=== PATIENT | female | born 1940 | race Caucasian/White ===

== ENCOUNTER 2019-03-25 14:39 | Inpatient (IN) ==
[2019-03-25] MEDS ORDERED: Furosemide 40 MG/4 ML VIAL IVP ONE (15:03)
[2019-03-25] MEDS ORDERED: Ipratropium/Albuterol Neb 3 ML IH ONE (15:03)
[2019-03-25] MEDS ORDERED: *HR* Labetalol 20 MG/4 ML SYRINGE IVP ONE (15:18)
[2019-03-25 15:50] LABS: Basophils % 0.1 %; Eosinophils # 0.3 K/mcL (0.0-0.6); Eosinophils % 4.6 %; Hematocrit 39.2 % (35.3-44.9); Immature Granulocytes % 0.1 % (0-4); Lymphocytes # 1.5 K/mcL (0.6-4.6); Lymphocytes % 21.1 %; Mean Corpuscular HGB Conc 33.2 g/dL (31.6-35.5); Mean Corpuscular Hemoglobin 30.4 pg (28.0-33.3); Mean Corpuscular Volume 91.6 fL (83.0-100.0); Mean Platelet Volume 11.4 fL (9.4-12.4); Monocytes # 0.8 K/mcL (0.0-1.3); Monocytes % 10.7 %; Neutrophils # 4.4 K/mcL (1.6-8.9); Platelet Count 231 K/mcL (140-400); Red Blood Count 4.28 M/mcL (3.82-4.97); Segmented Neutrophils % 63.4 %
[2019-03-25 16:12] LABS: Calcium 10.4 mg/dL (8.6-10.3); Potassium 4.4 mEq/L (3.5-5.1)
[2019-03-25 16:18] LABS: Troponin I 0.05 ng/mL (< 0.04)
[2019-03-25] MEDS ORDERED: methylPREDNISolone 125 MG/2 ML VIAL IVP ONE (17:32)
[2019-03-25] MEDS ORDERED: Aspirin 325 MG TABLET PO ONE (17:34)
[2019-03-25] MEDS ORDERED: Ondansetron 4 MG/2 ML VIAL IVP PRN (17:58)
[2019-03-25] MEDS ORDERED: Naloxone 0.4 MG/ML INJ IVP PRN (17:58)
[2019-03-25] MEDS ORDERED: MethylPREDNISolone 40 MG/ML VIAL IVP SCH (18:00)
[2019-03-25] MEDS ORDERED: *HR* Labetalol 20 MG/4 ML SYRINGE IVP PRN (18:00)
[2019-03-25] MEDS ORDERED: Dextrose Gel 15 GM/37.5 ML TUBE PO PRN ×2 (18:24)
[2019-03-25] MEDS ORDERED: D5% in Water 1,000 ML IVC PRN (18:24)
[2019-03-25] MEDS ORDERED: *HR* Dextrose 50 % in Water (Syg) 50 ML SYRINGE IVP PRN (18:24)
[2019-03-25] MEDS: Ipratropium/Albuterol Neb 3 ML IH SCH ×2 (20:05→22:56)
[2019-03-25] MEDS: Insulin LISPRO 300 UNITS/3 ML VIAL SQ SCH (20:28)
[2019-03-25] MEDS: Furosemide 40 MG/4 ML VIAL IVP SCH (20:52)
[2019-03-25] MEDS: *HR* Heparin 5,000 UNIT/ML VIAL SQ SCH (20:54)
[2019-03-26 01:02] LABS: Bilirubin,Urine Negative (Negative); Blood,Urine Large (Negative); Clarity,Urine Cloudy (Clear); Color,Urine Yellow (Yellow); Glucose,Urine (UA) 500 mg/dL (Normal); Ketones,Urine Negative (Negative); Leukocyte Esterase,Urine Small (Negative); Nitrite,Urine Negative (Negative); Protein,Urine 100 mg/dL (Neg-Trace); Specific Gravity,Urine 1.014 (1.010-1.025); Urobilinogen,Urine Normal (Normal)
[2019-03-26 01:04] LABS: Bacteria,Urine None Seen per hpf (None-Few); Hyaline Casts,Urine None Seen per lpf (None-Few); RBC,Urine 50-100 per hpf (0-3); Squamous Epithelial Cell,Urine Many per lpf (None-Few); WBC,Urine 30-50 per hpf (0-3)
[2019-03-26] MEDS: Ipratropium/Albuterol Neb 3 ML IH SCH ×6 (04:15→23:11)
[2019-03-26] MEDS ORDERED: Chloraseptic Spray 177 ML BOTTLE MM PRN (04:28)
[2019-03-26 04:46] LABS: Basophils % 0.1 %; Hematocrit 42.9 % (35.3-44.9); Hemoglobin 13.6 g/dL (11.5-15.4); Immature Granulocytes % 0.1 % (0-4); Lymphocytes # 0.5 K/mcL (0.6-4.6); Lymphocytes % 6.3 %; Mean Corpuscular HGB Conc 31.7 g/dL (31.6-35.5); Mean Corpuscular Hemoglobin 29.9 pg (28.0-33.3); Mean Corpuscular Volume 94.3 fL (83.0-100.0); Mean Platelet Volume 12.6 fL (9.4-12.4); Monocytes # 0.1 K/mcL (0.0-1.3); Monocytes % 0.7 %; Neutrophils # 7.9 K/mcL (1.6-8.9); Platelet Count 238 K/mcL (140-400); Red Blood Count 4.55 M/mcL (3.82-4.97); Segmented Neutrophils % 92.8 %; White Blood Count 8.5 K/mcL (4.3-11.1)
[2019-03-26 05:08] LABS: Calcium 10.3 mg/dL (8.6-10.3); Magnesium 1.8 mg/dL (1.6-2.6); Potassium 4.1 mEq/L (3.5-5.1)
[2019-03-26] MEDS: *HR* Heparin 5,000 UNIT/ML VIAL SQ SCH ×3 (05:16→21:24)
[2019-03-26] MEDS: Insulin LISPRO 300 UNITS/3 ML VIAL SQ SCH ×4 (08:01→21:24)
[2019-03-26] MEDS: Furosemide 40 MG/4 ML VIAL IVP SCH (08:01)
[2019-03-26] MEDS ORDERED: *HR* LORazepam 0.5 MG TABLET PO PRN (12:59)
[2019-03-26] MEDS ORDERED: Insulin NPH/REG 70/30 100 UNIT/ML (x5UNIT) SQ SCH (15:00)
[2019-03-26] MEDS: Insulin NPH/REG 70/30 100 UNIT/ML (x5UNIT) SQ SCH (16:54)
[2019-03-26] MEDS: Metoprolol 100 MG TABLET PO SCH ×2 (16:55→21:24)
[2019-03-26] MEDS ORDERED: Perflutren Lipid Microsphere 1.3 ML in 0.9 % Sodium Chloride 8.7 ML IVP ONE (20:22)
[2019-03-26] MEDS ORDERED: Perflutren Lipid Microsphere 2 ML VIAL ONE (20:24)
[2019-03-26] MEDS ORDERED: Metoprolol 100 MG TABLET PO SCH (21:00)
[2019-03-27] MEDS: Furosemide 40 MG TABLET PO SCH ×2 (00:04→08:23)
[2019-03-27] MEDS: Ipratropium/Albuterol Neb 3 ML IH SCH ×6 (04:07→23:51)
[2019-03-27] MEDS: *HR* Heparin 5,000 UNIT/ML VIAL SQ SCH (05:37)
[2019-03-27 06:32] LABS: Calcium 10.4 mg/dL (8.6-10.3); Chol/HDL Ratio 2.9 (0-4.9); Potassium 4.1 mEq/L (3.5-5.1)
[2019-03-27] MEDS: Insulin LISPRO 300 UNITS/3 ML VIAL SQ SCH ×4 (08:10→21:16)
[2019-03-27] MEDS: Metoprolol 100 MG TABLET PO SCH ×2 (08:23→21:16)
[2019-03-27] MEDS: Cholecalciferol (D-3) 1,000 UNIT (25MCG) TABLET PO SCH (08:23)
[2019-03-27] MEDS: Insulin NPH/REG 70/30 100 UNIT/ML (x5UNIT) SQ SCH ×4 (08:24→17:44)
[2019-03-27] MEDS ORDERED: Furosemide 40 MG/4 ML VIAL IVP SCH (09:00)
[2019-03-27] MEDS ORDERED: 0.9 % Sodium Chloride 500 ML IVC SCH (12:45)
[2019-03-27] MEDS ORDERED: E-Z-PAQUE (BARIUM SULF) SUSP 1 BOTTLE PO ONE (12:51)
[2019-03-27] MEDS: amLODIPine 5 MG TABLET PO SCH (14:33)
[2019-03-28] MEDS: Ipratropium/Albuterol Neb 3 ML IH SCH ×6 (03:31→23:13)
[2019-03-28 04:05] LABS: Bilirubin,Urine Negative (Negative); Blood,Urine Large (Negative); Clarity,Urine Cloudy (Clear); Color,Urine Yellow (Yellow); Glucose,Urine (UA) Normal (Normal); Ketones,Urine Negative (Negative); Leukocyte Esterase,Urine Large (Negative); Nitrite,Urine Negative (Negative); Protein,Urine 100 mg/dL (Neg-Trace); Specific Gravity,Urine 1.017 (1.010-1.025); Urobilinogen,Urine Normal (Normal)
[2019-03-28 04:07] LABS: Bacteria,Urine None Seen per hpf (None-Few); Hyaline Casts,Urine None Seen per lpf (None-Few); RBC,Urine TNTC per hpf (0-3); Squamous Epithelial Cell,Urine Many per lpf (None-Few); WBC,Urine TNTC per hpf (0-3)
[2019-03-28 04:15] LABS: Sodium, Urine 54.8 mEq/L
[2019-03-28 05:22] LABS: Basophils % 0.3 %; Eosinophils # 0.1 K/mcL (0.0-0.6); Eosinophils % 1.3 %; Hematocrit 39.4 % (35.3-44.9); Hemoglobin 12.3 g/dL (11.5-15.4); Immature Granulocytes % 0.4 % (0-4); Lymphocytes # 2.2 K/mcL (0.6-4.6); Lymphocytes % 19.5 %; Mean Corpuscular HGB Conc 31.2 g/dL (31.6-35.5); Mean Corpuscular Hemoglobin 29.6 pg (28.0-33.3); Mean Corpuscular Volume 94.7 fL (83.0-100.0); Mean Platelet Volume 11.8 fL (9.4-12.4); Monocytes # 1.1 K/mcL (0.0-1.3); Monocytes % 10.1 %; Neutrophils # 7.6 K/mcL (1.6-8.9); Platelet Count 227 K/mcL (140-400); Red Blood Count 4.16 M/mcL (3.82-4.97); Red Cell Distribution Width 14.5 % (11.5-14.5); Segmented Neutrophils % 68.4 %
[2019-03-28 06:12] LABS: Calcium 9.9 mg/dL (8.6-10.3); Potassium 3.9 mEq/L (3.5-5.1)
[2019-03-28] MEDS: Insulin LISPRO 300 UNITS/3 ML VIAL SQ SCH ×4 (07:47→20:19)
[2019-03-28] MEDS: Insulin NPH/REG 70/30 100 UNIT/ML (x5UNIT) SQ SCH ×3 (07:49→18:22)
[2019-03-28] MEDS: amLODIPine 5 MG TABLET PO SCH (07:54)
[2019-03-28] MEDS: Cholecalciferol (D-3) 1,000 UNIT (25MCG) TABLET PO SCH (07:54)
[2019-03-28] MEDS: Metoprolol 100 MG TABLET PO SCH ×2 (07:56→20:19)
[2019-03-28] MEDS: Nystatin POWDER 30 GM BOTTLE TP SCH ×2 (07:57→20:20)
[2019-03-28] MEDS ORDERED: Ergocalciferol (VIT D2) 50,000 UNIT (1.25MG) CAP PO SCH (10:45)
[2019-03-28] MEDS: Furosemide 40 MG TABLET PO SCH (11:35)
[2019-03-29] MEDS ORDERED: Acetaminophen 325 MG TABLET PO PRN (00:28)
[2019-03-29] MEDS: Ipratropium/Albuterol Neb 3 ML IH SCH ×5 (03:59→19:50)
[2019-03-29 05:26] LABS: Calcium 10.1 mg/dL (8.6-10.3)
[2019-03-29] MEDS: Insulin LISPRO 300 UNITS/3 ML VIAL SQ SCH ×3 (08:06→16:59)
[2019-03-29] MEDS: Insulin NPH/REG 70/30 100 UNIT/ML (x5UNIT) SQ SCH ×3 (08:06→16:59)
[2019-03-29] MEDS: Nystatin POWDER 30 GM BOTTLE TP SCH (10:18)
[2019-03-29] MEDS: Metoprolol 100 MG TABLET PO SCH (10:24)
[2019-03-29] MEDS: amLODIPine 5 MG TABLET PO SCH (10:24)
[2019-03-29] MEDS: Furosemide 40 MG TABLET PO SCH (11:47)
[2019-03-29] MEDS ORDERED: 0.9 % Sodium Chloride 500 ML IVC SCH (13:30)
[2019-03-29] MEDS ORDERED: *HR* Propofol 200 MG/20 ML VIAL IVP ONE (13:49)
[2019-03-29 18:55] VITALS: BP 141/69
== END 2019-03-29 20:28 | DRG 291 ==
LOC: 3BNU 14:39 → EMEROOARM 14:39 → 3BNU 19:43
PROVIDERS: ADMIT Student in an Organized Health Care Education/Training Program; ATTEND Student in an Organized Health Care Education/Training Program
PROC: ENDOEDS (2019-03-29 14:25)

== ENCOUNTER 2019-06-16 18:49 | Inpatient (IN) ==
[2019-06-16] MEDS ORDERED: Ondansetron ODT 4 MG TAB.RAPDIS SL PRN (22:13)
[2019-06-16] MEDS ORDERED: Acetaminophen 325 MG TABLET PO PRN (22:13)
[2019-06-16] MEDS ORDERED: Naloxone 0.4 MG/ML INJ IVP PRN ×2 (22:13→22:37)
[2019-06-16] MEDS ORDERED: Ipratropium/Albuterol Neb 3 ML IH PRN (22:21)
[2019-06-16] MEDS ORDERED: Dextrose Gel 15 GM/37.5 ML TUBE PO PRN ×2 (22:23)
[2019-06-16] MEDS ORDERED: *HR* Dextrose 50 % in Water (Syg) 50 ML SYRINGE IVP PRN (22:23)
[2019-06-16] MEDS ORDERED: D5% in Water 1,000 ML IVC PRN (22:23)
[2019-06-16] MEDS: Furosemide 40 MG/4 ML VIAL IVP SCH (22:56)
[2019-06-16] MEDS: cefTRIAXone 2,000 MG in Water for inj. (sterile) 20 ML IVP SCH (22:56)
[2019-06-17 02:08] LABS: Basophils % 0.3 %; Eosinophils # 0.2 K/mcL (0.0-0.6); Eosinophils % 1.7 %; Hematocrit 42.3 % (35.3-44.9); Hemoglobin 13.5 g/dL (11.5-15.4); Immature Granulocytes % 0.2 % (0-4); Lymphocytes # 1.8 K/mcL (0.6-4.6); Lymphocytes % 18.5 %; Mean Corpuscular HGB Conc 31.9 g/dL (31.6-35.5); Mean Corpuscular Hemoglobin 29.7 pg (28.0-33.3); Mean Corpuscular Volume 93.2 fL (83.0-100.0); Mean Platelet Volume 12.1 fL (9.4-12.4); Monocytes # 0.9 K/mcL (0.0-1.3); Monocytes % 9.1 %; Neutrophils # 6.7 K/mcL (1.6-8.9); Platelet Count 246 K/mcL (140-400); Red Blood Count 4.54 M/mcL (3.82-4.97); Red Cell Distribution Width 13.9 % (11.5-14.5); Segmented Neutrophils % 70.2 %; White Blood Count 9.5 K/mcL (4.3-11.1)
[2019-06-17 02:25] LABS: BUN/Creatinine Ratio 20 (6-26); Blood Urea Nitrogen 21 mg/dL (8-23); Calcium 10.8 mg/dL (8.6-10.3); Carbon Dioxide 27 mEq/L (23-29); Chloride 102 mEq/L (98-107); Glucose 265 mg/dL (70-105); Magnesium 1.8 mg/dL (1.6-2.6); Osmolality,Calculated 294 (280-300); Potassium 4.1 mEq/L (3.5-5.1); Sodium 136 mEq/L (136-145); eGFR For African Americans > 60 (> 60); eGFR For Non-African Americans 51 (> 60)
[2019-06-17] MEDS: *HR* Heparin 5,000 UNIT/ML VIAL SQ SCH ×2 (05:23→17:28)
[2019-06-17] MEDS: predniSONE 20 MG TABLET PO SCH (10:33)
[2019-06-17] MEDS: Insulin LISPRO 300 UNITS/3 ML VIAL SQ SCH ×4 (10:36→21:53)
[2019-06-17] MEDS: Furosemide 40 MG/4 ML VIAL IVP SCH ×2 (10:39→21:54)
[2019-06-17] MEDS: Budesonide/Formoterol 80/4.5 1 PUFF INH IH SCH (19:21)
[2019-06-17] MEDS ORDERED: Insulin DETEMIR 100 UNIT/ML X5UNITS SQ SCH (21:00)
[2019-06-17] MEDS: cefTRIAXone 2,000 MG in Water for inj. (sterile) 20 ML IVP SCH (22:00)
[2019-06-18 01:46] LABS: VBG Ionized Calcium 1.37 mmol/L (1.15-1.35)
[2019-06-18] MEDS: *HR* Heparin 5,000 UNIT/ML VIAL SQ SCH ×2 (05:27→17:15)
[2019-06-18] MEDS ORDERED: *HR* LORazepam 0.5 MG TABLET PO PRN (06:52)
[2019-06-18 07:26] LABS: Calcium 10.8 mg/dL (8.6-10.3); Potassium 4.6 mEq/L (3.5-5.1)
[2019-06-18] MEDS ORDERED: Insulin DETEMIR 100 UNIT/ML X5UNITS SQ ONE (07:46)
[2019-06-18] MEDS: predniSONE 20 MG TABLET PO SCH (07:58)
[2019-06-18] MEDS: Insulin LISPRO 300 UNITS/3 ML VIAL SQ SCH ×4 (08:02→20:25)
[2019-06-18] MEDS: Budesonide/Formoterol 80/4.5 1 PUFF INH IH SCH ×2 (08:09→20:45)
[2019-06-18 08:54] LABS: Basophils % 0.3 %; Eosinophils # 0.1 K/mcL (0.0-0.6); Eosinophils % 0.8 %; Hematocrit 41.3 % (35.3-44.9); Hemoglobin 13.4 g/dL (11.5-15.4); Immature Granulocytes % 0.3 % (0-4); Lymphocytes # 1.7 K/mcL (0.6-4.6); Lymphocytes % 18.3 %; Mean Corpuscular HGB Conc 32.4 g/dL (31.6-35.5); Mean Corpuscular Hemoglobin 30.1 pg (28.0-33.3); Mean Corpuscular Volume 92.8 fL (83.0-100.0); Mean Platelet Volume 11.8 fL (9.4-12.4); Monocytes # 0.7 K/mcL (0.0-1.3); Monocytes % 7.6 %; Neutrophils # 6.7 K/mcL (1.6-8.9); Platelet Count 236 K/mcL (140-400); Red Blood Count 4.45 M/mcL (3.82-4.97); Red Cell Distribution Width 13.6 % (11.5-14.5); Segmented Neutrophils % 72.7 %; White Blood Count 9.3 K/mcL (4.3-11.1)
[2019-06-18] MEDS ORDERED: Perflutren Lipid Microsphere 1.3 ML in 0.9 % Sodium Chloride 8.7 ML IVP ONE (09:36)
[2019-06-18] MEDS: amLODIPine 5 MG TABLET PO SCH ×2 (10:17→10:33)
[2019-06-18] MEDS: Furosemide 20 MG/2 ML VIAL IVP SCH (17:14)
[2019-06-18] MEDS ORDERED: Insulin Human Regular 10 UNIT in 0.9 % Sodium Chloride 10 ML IV ONE (19:41)
[2019-06-18] MEDS: Insulin DETEMIR 100 UNIT/ML X5UNITS SQ SCH (20:26)
[2019-06-19 05:12] LABS: Calcium 10.8 mg/dL (8.6-10.3); Potassium 4.2 mEq/L (3.5-5.1)
[2019-06-19] MEDS: *HR* Heparin 5,000 UNIT/ML VIAL SQ SCH ×2 (05:13→15:43)
[2019-06-19 07:00] LABS: Estimated Average Glucose 214 mg/dl
[2019-06-19] MEDS: predniSONE 20 MG TABLET PO SCH (07:35)
[2019-06-19] MEDS: Insulin DETEMIR 100 UNIT/ML X5UNITS SQ SCH ×2 (07:36→21:20)
[2019-06-19] MEDS: Insulin LISPRO 300 UNITS/3 ML VIAL SQ SCH ×4 (07:37→21:19)
[2019-06-19] MEDS: Furosemide 20 MG/2 ML VIAL IVP SCH ×4 (07:38→15:44)
[2019-06-19] MEDS: Famotidine 20 MG TABLET PO SCH ×2 (09:47→21:20)
[2019-06-19] MEDS: Budesonide/Formoterol 80/4.5 1 PUFF INH IH SCH ×2 (09:51→20:20)
[2019-06-19] MEDS ORDERED: amLODIPine 5 MG TABLET PO SCH (11:45)
[2019-06-20 05:20] LABS: Calcium 10.5 mg/dL (8.6-10.3); Potassium 4.6 mEq/L (3.5-5.1)
[2019-06-20] MEDS: *HR* Heparin 5,000 UNIT/ML VIAL SQ SCH (05:49)
[2019-06-20] MEDS ORDERED: amLODIPine 5 MG TABLET PO SCH (09:00)
[2019-06-20] MEDS: predniSONE 20 MG TABLET PO SCH (09:28)
[2019-06-20] MEDS: Famotidine 20 MG TABLET PO SCH (09:29)
[2019-06-20] MEDS: Insulin DETEMIR 100 UNIT/ML X5UNITS SQ SCH (09:29)
[2019-06-20] MEDS: Furosemide 20 MG/2 ML VIAL IVP SCH (09:29)
[2019-06-20] MEDS: Insulin LISPRO 300 UNITS/3 ML VIAL SQ SCH ×2 (09:29→12:23)
[2019-06-20] MEDS: Budesonide/Formoterol 80/4.5 1 PUFF INH IH SCH (09:37)
[2019-06-20 10:47] VITALS: BP 138/78
[2019-06-20] MEDS ORDERED: Famotidine 20 MG TABLET PO SCH (21:00)
== END 2019-06-20 16:48 | disposition home health service (06) | DRG 191 ==
LOC: 3BNU → SUATTDRO 20:13
PROVIDERS: ADMIT Internal Medicine; ATTEND Internal Medicine